=== PATIENT | female | born 1950 | race Caucasian/White ===

== ENCOUNTER 2018-05-07 13:00 | Outpatient (RCR) | payer OTHER | END 2018-05-08 | LOC: PT 13:00 | PROVIDERS: ATTEND Family Medicine | DX: M54.6 Pain in thoracic spine (principal) ==

== ENCOUNTER 2018-06-04 14:00 | Outpatient (RCR) | payer OTHER | END 2018-06-07 | LOC: PT 14:00 | PROVIDERS: ATTEND Family Medicine | DX: M54.6 Pain in thoracic spine (principal) ==

== ENCOUNTER 2018-06-09 14:00 | Outpatient (RCR) | payer OTHER | END 2018-07-08 | LOC: PT 14:00 | PROVIDERS: ATTEND Family Medicine | DX: M54.6 Pain in thoracic spine (principal); M62.81 Muscle weakness (generalized) ==

== ENCOUNTER → 2021-06-15 | Outpatient (CLI) | payer MEDICARE | LOC: CT 14:41 | PROVIDERS: ATTEND Internal Medicine Gastroenterology | DX: K86.2 Cyst of pancreas (principal); N28.89 Other specified disorders of kidney and ureter | CPT/HCPCS: 74176 ==

== ENCOUNTER → 2021-08-15 | Outpatient (CLI) | payer MEDICARE | LOC: RAD 13:40 | PROVIDERS: ATTEND Internal Medicine | DX: M54.89 Other dorsalgia (principal) | CPT/HCPCS: 71046 ==

== ENCOUNTER → 2023-01-15 | Outpatient (CLI) | payer MEDICARE | LOC: CT 15:35 | PROVIDERS: ATTEND Internal Medicine Gastroenterology | DX: K86.2 Cyst of pancreas (principal) | CPT/HCPCS: 74150 ==